=== PATIENT | male | born 1985 | race Caucasian/White ===

== ENCOUNTER 2016-05-23 13:06 | Inpatient (IN) | payer OTHER ==
--- NOTE | ~2016-05-23 | DS ---
Unit #: [id number] #: [id number] Patient: GÓMEZ RICKETTS [id number] [address] [place], [place] [address] [id number] I MR#: [id number] NAME: GÓMEZ RICKETTS. ROOM: 469 Age: 30 Sex: M Admission Date: 05/23/2016 : 1985 Discharge Date: 05/26/2016 Attending Physician: Lawanda Carlisle M.D. Primary Care Physician: Primary Care Physician No DISCHARGE SUMMARY DIAGNOSIS ON ADMISSION Right groin area abscess. DISCHARGE DIAGNOSES 1. Right groin area abscess and cellulitis, status post I and D. 2. Hypertension. 3. Type [address] Cintron in surgical consultation DIAGNOSTIC STUDIES LABORATORY: The patient's creatinine is 0.5, sodium 137, potassium is 3.8, WBC is 16.6, hemoglobin is 13.7, platelet count is 187. Wound culture and sensitivity revealed staphylococcus. The patient is sensitive to Bactrim and oxacillin. Blood culture did not reveal any growth so far. IMAGING: CT scan of the pelvis reveals soft tissue area in the right inguinal region, which extends down to the right scrotum. There was soft tissue swelling. Hemoglobin A1c was 10.2. HOSPITAL COURSE A 30-year-old male presented to [facility] with right groin swelling, details are as per admission history and physical. The patient was seen by Dr. Cintron and group in consultation and underwent incision and drainage. His culture was growing staphylococcus. Dr. Cintron has recommended the patient Bactrim DS one p.o. b.i.d. for fifteen days. He has asked to start him on Porter. Type 2 diabetes mellitus is uncontrolled. I have started the patient on glipizide. The patient is advised to follow up with his primary care physician. The patient has had hiccups and was treated by [facility]. Today, the patient is comfortable, is not in any acute distress. PHYSICAL EXAMINATION VITAL SIGNS: Reveal temperature of 97.1, pulse is 68 per minute, Unit #: [id number] #: [id number] Patient: GÓMEZ RICKETTS respiratory rate is 16 per minute, blood pressure is 133/65. HEENT EXAMINATION: Reveals no conjunctival congestion. Sclera is nonicteric. NECK: Supple. Trachea is central. RESPIRATORY EXAMINATION: Breath sounds equal bilaterally. There are no wheezes or crackles. HEART: Regular rate and rhythm, S1 and S2. ABDOMEN: Soft, nontender. Bowel sounds are present in all four quadrants. NEUROLOGIC: The patient is alert to person, place, and time. Strength is 5/5 bilaterally. SKIN EXAMINATION: The patient has right groin dressing. Skin is warm and dry. RECOMMENDATIONS ON DISCHARGE 1. The patient is stable. 2. Activity as tolerated. DISCHARGE MEDICATIONS 1. Glucophage 1000 mg p.o. b.i.d. 2. Glipizide 5 mg p.o. b.i.d. before meals 3. Benadryl 25 mg p.o. q.6h p.r.n. for itching over the counter 4. Porter 10/325 mg 1-2 pills p.o. q.4h p.r.n. for pain, script was written by Dr. Cintron for #38 pills FOLLOWUP The patient is advised to follow up with primary care physician in one week and with Dr. Cintron as recommended. The patient is advised to call primary care physician or go to the emergency room if his condition changes. The plan was discussed in detail with the patient who showed complete understanding. Dictated by... Azam Berg/yoana TD: 05/26/2016 15:49 JOB #: [id number] DISCHARGE SUMMARY X Harshal Savage MD X DISCHARGE SUMMARY
--- NOTE | ~2016-05-23 | CT105 ---
[facility] A Service [facility] RADIOLOGY TEXT RESULTS PATIENT: GÓMEZ RICKETTS LOCATION: [place] [address] : [birth year] UNIT #: [id number] AGE: [address]: Lawanda Carlisle MD SEX: M ORDER DR: [id number] [address] [address] [id number] E MR#: [id number] Acc #: [id number] NAME: GÓMEZ RICKETTS : 1985 SEX: M STUDY DATE/TIME: 05/23/2016 14:26 UNIT: SED ROOM: STUDY DESCRIPTION: CT Pelvis W Cont Attending Physician: Sheela Bazan Pa-C Ordering Physician: Sohail Shipley M.D. Primary Care Physician: No Primary Care Physician MEDICAL IMAGING REPORT This report is preliminary unless electronic signature is present. EXAM CT pelvis. DATE OF EXAM 05/23/2016 HISTORY Drainage from groin beginning last night. Right-sided pain and swelling. TECHNIQUE Transaxial imaging of the pelvis was performed with an IV bolus of contrast media. NOTE: This CT exam was performed with one or more of the following radiation dose reduction techniques: automatic exposure control, adjustment of mA and/or kV according to patient size, and iterative reconstruction. FINDINGS The study shows soft tissue edema in the right inguinal region. This extends down the right hemiscrotum. There is no fluid collection identified. Findings more suggestive of cellulitis. A few small nodes are identified in the region. None are pathologically enlarged. No fluid collections are identified in the subjacent musculature. Pelvis proper is unremarkable. Bony structures are normal. CONCLUSION Soft tissue swelling in the right inguinal region without evidence of a well-defined abscess. The findings are more suggestive of cellulitis than abscess. CT of the pelvis is otherwise negative. Dictated by... Tomi Del Toro M.D. [facility] A Service [facility] RADIOLOGY TEXT RESULTS PATIENT: GÓMEZ RICKETTS LOCATION: [facility] : [birth year] UNIT #: [id number] AGE: [address]: Lawanda Carlisle MD SEX: M ORDER DR: THIS IS AN ELECTRONICALLY VERIFIED REPORT Tomi Del Toro M.D. at 05/27/2016 5:08 PM JESSE/kenneth TD: 05/23/2016 17:15 JOB #: [id number] MEDICAL IMAGING REPORT
--- NOTE | ~2016-05-23 | HP ---
Unit #: [id number] #: [id number] Patient: GÓMEZ RICKETTS [id number] [place] [address] [facility]. [place], [place] [address] [id number] I MR#: [id number] NAME: GÓMEZ RICKETTS. ROOM: 339 Age: 30 Sex: M Admission Date: 05/23/2016 : 1985 Attending Physician: Candice Powell M.D. HISTORY AND PHYSICAL CHIEF COMPLAINT Possible abscessed groin. HISTORY OF PRESENT ILLNESS The patient is a 30-year-old male with a past medical history of diabetes, hypertension, and possible seizure, who presented to [facility] Emergency Department for evaluation of the above. The patient states that he was in his usual state of health until the day prior to admission when he noticed pain in his groin. He then noticed that it was swollen and red similar to when he had an abscess in the past. He states that he had an abscess about a month ago in his testicle. He completed a course of Keflex. The abscess today is in a different location. He denies any drainage. He states that he has had fever and chills. He reports a temperature of 101.3 at home. He denies any nausea, no vomiting, and no urinary symptoms. He does not routinely check his blood sugars. In the emergency department, his initial temperature was 98, pulse 97, and blood pressure 146/97. A CT of the pelvis showed soft tissue edema in the right inguinal region with no fluid collection identified suggestive of cellulitis. Also of note, the patient's white blood cell count was 10.9 and lactic acid 2.6. He was given clindamycin. Also of note, the patient's initial blood sugar on comprehensive metabolic panel was 444. He was given one liter of normal saline, as well as eight units of regular insulin. He was transferred to [facility] for admission. PAST MEDICAL HISTORY 1. Admission to [facility] February 22, 2010, for chest pain. 2. Hypertension. 3. Diabetes. 4. Seizure versus night terrors. The patient states that he has not had an episode for more than one year. He has never been on antiepileptic medication. He does not see a neurologist. PAST SURGICAL HISTORY 1. Tonsillectomy. 2. Knee surgery. 3. Pilonidal cyst removal. SOCIAL HISTORY The patient lives with his fiance. He smokes a half pack of cigarettes Unit #: [id number] #: [id number] Patient: GÓMEZ RICKETTS daily. He denies alcohol or illicit drug use. He works as a counter intelligence agent. FAMILY HISTORY Notable for his dad having diabetes. He at the age of 51. ALLERGIES PENICILLIN. HOME MEDICATIONS Glucophage. REVIEW OF SYSTEMS A 10-point review of systems is negative except as indicated in the History of Present Illness. The patient states that he has lost about 145 pounds in the past year. He states that he has not been trying to lose weight. He does not check his blood sugars at home as he does not have a glucometer. PHYSICAL EXAMINATION VITAL SIGNS: Temperature is 98, pulse 97, respirations 18, and blood pressure 146/97. GENERAL: Patient is a male who is awake, alert, and in no acute distress. HEENT: Head is atraumatic. Mucous membranes are moist. NECK: Supple. Trachea is midline. CARDIOVASCULAR: Regular rate and rhythm. LUNGS: Clear to auscultation bilaterally with no increased work of breathing. ABDOMEN: Soft and nontender with bowel sounds present in all four quadrants. EXTREMITIES: Nontender with no pedal edema. GENITOURINARY: The patient does have erythema, edema, warmth, and tenderness to palpation involving the right inguinal area consistent with cellulitis. It extends into the right scrotal area. NEUROLOGIC: Patient is awake and alert. He follows commands. PSYCHIATRIC: Mood and affect are normal. Patient is cooperative. SKIN: Skin demonstrates the previously described abnormalities. DIAGNOSTIC STUDIES LABORATORY: White blood cell count is 10.9. Comprehensive metabolic panel notable for sodium of 132 but corrects when glucose of 444 is accounted for. (1) is 98 and alkaline phosphatase 112. Lactic acid is 2.6. IMAGING: CT of the pelvis shows findings concerning for cellulitis with no drainable fluid collection. Urinalysis is notable for 300 glucose. ASSESSMENT The patient is a 30-year-old male with: 1. Right groin cellulitis. The patient had a wound culture from April 14, 2016, that grew 4+ group B streptococcus. There was also a wound culture from December 04, 2010, that again grew 3+ group B streptococcus. The patient received clindamycin in the emergency department. 2. Sepsis. 3. Uncontrolled diabetes. The patient received one liter of normal saline, as well as eight units of regular insulin. Unit #: [id number] #: [id number] Patient: GÓMEZ RICKETTS 4. Hypertension. 5. Possible seizure history versus night terrors. 6. Tobacco abuse. PLAN 1. Admit to med/surg. 2. Healthy heart, consistent carbohydrate diet. 3. Normal saline at 75 mL/hour. 4. N.p.o. after midnight for possible surgical intervention. 5. Blood cultures x2. 6. Vancomycin IV and Levaquin IV with first doses now. 7. Sepsis protocol with repeat lactic acid. 8. Consult [facility] regarding groin abscess/cellulitis. 9. Hemoglobin A1c. 10. Low-dose sliding scale insulin with Accu-Cheks. 11. P.r.n. Dilaudid. 12. P.r.n. Zofran. 13. P.r.n. Tylenol. 14. Repeat labs in the morning. 15. SCDs for DVT prophylaxis. 16. Additional workup and consultants based on above. 1. Dictated by Azam Carty/merissa TD: 05/23/2016 21:55 JOB #: [id number] HISTORY AND PHYSICAL X Rubi Fan MD X HISTORY AND PHYSICAL
--- NOTE | ~2016-05-23 | OR ---
Unit #: [id number] #: [id number] Patient: GÓMEZ RICKETTS [id number] [facility]. [address] [place], [place] [address] [id number] I MR#: [id number] NAME: GÓMEZ RICKETTS. ROOM: 469 Date of Procedure: 05/24/2016 Admission Date: 05/23/2016 Surgeon: Cornel Cintron Jr., M.D. : 1985 Attending Physician: Lawanda Carlisle M.D. OPERATIVE REPORT INDICATION FOR PROCEDURE The patient is a 30-year-old white male, who presented through the emergency room complaining of severe pain with evidence of cellulitis and probable abscess of the right groin area. He is brought to the operating room at this time for incision, drainage, and sharp excisional debridement of this using a #10-blade scalpel. He understands the procedure including the risk and consents. PREOPERATIVE DIAGNOSIS Abscess right inguinal femoral area. POSTOPERATIVE DIAGNOSIS Abscess right inguinal femoral area noting approximately 30 mL of pus and an abscess cavity in the suprapubic area to the right of the midline. ANESTHESIA General with LMA. PROCEDURE PERFORMED Incision and drainage and sharp excisional debridement using a #10-blade scalpel through the skin down through the subcutaneous tissue to the deeper subcutaneous tissue. DESCRIPTION OF PROCEDURE The patient was positioned in a supine position. After being anesthetized, he was prepped and draped in a routine fashion for incision and drainage and sharp excisional debridement of the abscess noted above. An elliptical incision was made around the most indurated area and this was carried down through the subcutaneous tissue down to the area of the abscess. There was approximately 30 to 40 mL of pus, which was [id number]. Cultures were taken from this for aerobic and anaerobic organisms and sent. The remainder of the tissue was removed with a #10-blade scalpel down to the deeper subcutaneous tissue. This was sent for pathology. Hemostasis was achieved with Bovie cautery. Some additional indurated tissue was removed that may have represented some necrotizing fatty tissue and at this point, there were several small bleeders that were controlled with [id number] 4-0 silk sutures. After hemostasis was noted and achieved with Bovie cautery, the wound was irrigated and then packed open with saline moist dry dressings. Sterile dressings were applied externally. Estimated blood loss less than 75 mL. The patient received less than 1000 mL crystalloid solution during the procedure. Sponges and instruments counts were correct x3. No drains Unit #: [id number] #: [id number] Patient: GÓMEZ RICKETTS used. No complications. The patient was taken to the recovery room with stable vital signs in satisfactory condition. Dictated by... Cornel Cintron Jr., MGoyo. CHALINO/arminda TD: 05/25/2016 04:55 JOB #: [id number] OPERATIVE REPORT X Cornel Cintron MD X PROCEDURE OPERATIVE NOTE
[~2016-05-23 13:06] MED LIST: ALBUTEROL 0.5ML INH; ASPIRIN81 M1 PO; BACTRIM DS TABL1 TA1 PO; BACTRIM DS TABL1 TA2 PO; BENZONATATE PO; BP MED; CIPRO PO; DILANTIN PO; DOXYCYCLINE HY100 M1 PO; FIORICET 50-321 EACH PO; FLONASE16 GM; GLUCOPHAGE500 M1 PO; GLUCOPHAGE500 MG PO; HCTZ; HYDROCODON-ACE1 EAC7 PO; LORTAB 5/500 TA1 TA1 PO; METFORMIN HCL500 M1; METFORMIN HCL500 M1 PO; METFORMIN PO; METOPROLOL TAR25 MG PO; METOPROLOL TART25 MG PO; NO MEDICATIONS; NORVASC PO; NYSTATIN1 GM TOP; PERCOCET5/325 PO; PHENERGAN PO; PHENERGAN25 M1 PO; PREDNISONE PO; TYLENOL #3 PO; UNKNOWN BP PILL; VIBRAMYCIN100 M1 PO; VICODIN 5/1 TAB 5/50 PO; VICODIN PO; ZITHROMAX PO; ZITHROMAX1 G/PKT PO; ZOFRAN PO
[2016-05-23] MEDS ORDERED: METFORMIN PO (13:08)
[2016-05-23 13:40] LABS: BASOPHIL# 0.1 X10e3 (0.0-0.3); BASOPHIL% 0.5 % (0.0-2.5); EOSINOPHIL# 0.3 X10e3 (0.0-0.7); EOSINOPHIL% 2.3 % (0.0-7.0); HEMATOCRIT 45.9 % (38.0-50.0); LYMPHOCYTE# 1.8 X10e3 (1.0-3.5); LYMPHOCYTE% 16.5 % (17.0-45.0); MEAN CELL VOLUME 86.8 FL (83-96); MEAN CORPUSCULAR HEMOGLOBIN 30.2 PG (28-34); MEAN CORPUSCULAR HGB CONC 34.8 g/dL (30-36); MEAN PLATELET VOLUME 8.2 FL (6.5-11.5); MONOCYTE# 0.7 X10e3 (0.0-1.0); NEUTROPHIL% 74.7 % (40.0-75.0); PLATELET COUNT 213 X10e3 (140-420); RED BLOOD COUNT 5.28 X10e6 (3.90-5.60); RED CELL DISTRIBUTION WIDTH 11.8 % (11.0-15.5); WHITE BLOOD COUNT 10.9 X10e3 (4.0-10.5)
[2016-05-23 13:46] LABS: DIFF IND NO
[2016-05-23 14:04] LABS: ALBUMIN SERUM 4.3 g/dL (3.5-5.0); ALKALINE PHOSPHATASE 112 U/L (32-92); ALT (SGPT) 18 U/L (10-40); AST (SGOT) 25 U/L (10-42); BILIRUBIN,TOTAL 0.7 mg/dL (0.2-2.0); BLOOD UREA NITROGEN 17 mg/dL (9-23); BUN/CREATININE RATIO 21.25; CARBON DIOXIDE 23 mmol/L (22-31); CHLORIDE 98 mmol/L (100-111); CREATININE SERUM 0.8 mg/dL (0.6-1.4); GLOM FILT RATE Estimated ABOVE60 mL/min (>60); GLUCOSE FASTING 444 mg/dL (70-110); PROTEIN TOTAL SERUM 7.7 g/dL (6.0-8.3); SODIUM 132 mmol/L (135-145)
[2016-05-23 19:26] LABS: URINE APPEARANCE CLEAR; URINE COLOR YELLOW; URINE GLUCOSE 300 MG/DL (NEG); URINE LEUKOCYTE ESTERASE NEG (NEG); URINE NITRATE NEG (NEG); URINE PH 5.5 (5-8); URINE PROTEIN NEG (NEG); URINE SOURCE CLEAN CATCH
[2016-05-23 19:27] LABS: MICRO INDICATED? NO; URINE BILIRUBIN NEG (NEG); URINE BLOOD NEG (NEG); URINE KETONE TRACE (NEG); URINE UROBILINOGEN 0.2 MG/DL (NEG)
[2016-05-23 22:56] LABS: ALBUMIN SERUM 4.6 g/dL (3.5-5.0); ALKALINE PHOSPHATASE 112 U/L (32-92); ALT (SGPT) 17 U/L (10-40); AST (SGOT) 15 U/L (10-42); BILIRUBIN,TOTAL 0.8 mg/dL (0.2-2.0); BLOOD UREA NITROGEN 16 mg/dL (9-23); BUN/CREATININE RATIO 17.77; CALCIUM SERUM 9.3 mg/dL (8.4-10.2); CARBON DIOXIDE 27 mmol/L (22-31); CHLORIDE 100 mmol/L (100-111); CREATININE SERUM 0.9 mg/dL (0.6-1.4); GLOM FILT RATE Estimated ABOVE60 mL/min (>60); GLUCOSE FASTING 266 mg/dL (70-110); POTASSIUM 3.7 mmol/L (3.5-5.1); PROTEIN TOTAL SERUM 8.1 g/dL (6.0-8.3); SODIUM 137 mmol/L (135-145)
[2016-05-24 06:45] LABS: BASOPHIL# 0.1 X10e3 (0-0.3); BASOPHIL% 0.4 % (0-2.5); EOSINOPHIL% 0.2 % (0.0-7.0); HEMATOCRIT 45.6 % (38.0-50.0); HEMOGLOBIN 15.3 gm/dL (13.0-16.0); LYMPHOCYTE# 0.9 X10e3 (1.0-3.5); LYMPHOCYTE% 7.5 % (17.0-45.0); MEAN CELL VOLUME 88.9 FL (83-96); MEAN CORPUSCULAR HEMOGLOBIN 29.9 PG (28-34); MEAN CORPUSCULAR HGB CONC 33.7 g/dL (30-36); MEAN PLATELET VOLUME 8.4 FL (6.5-11.5); MONOCYTE# 0.1 X10e3 (0-1.0); NEUTROPHIL# 11.2 X10e3 (1.5-7.1); NEUTROPHIL% 90.9 % (40-75); PLATELET COUNT 187 X10e3 (140-420); RED BLOOD COUNT 5.13 X10e (3.90-5.60); RED CELL DISTRIBUTION WIDTH 12.6 % (11.0-15.5); WHITE BLOOD COUNT 12.3 X10e3 (4.0-10.5)
[2016-05-24 06:47] LABS: DIFF IND NO
[2016-05-24 06:58] LABS: PROTHROMBIN TIME (PATIENT) 10.7 SECONDS (9.6-11.5)
[2016-05-24 07:26] LABS: ALBUMIN SERUM 3.9 g/dL (3.5-5.0); ALKALINE PHOSPHATASE 110 U/L (32-92); ALT (SGPT) 16 U/L (10-40); AST (SGOT) 13 U/L (10-42); BILIRUBIN,TOTAL 1.1 mg/dL (0.2-2.0); BLOOD UREA NITROGEN 17 mg/dL (9-23); BUN/CREATININE RATIO 24.28; CALCIUM SERUM 9.1 mg/dL (8.4-10.2); CARBON DIOXIDE 23 mmol/L (22-31); CHLORIDE 101 mmol/L (100-111); CREATININE SERUM 0.7 mg/dL (0.6-1.4); GLOM FILT RATE Estimated ABOVE60 mL/min (>60); GLUCOSE FASTING 383 mg/dL (70-110); POTASSIUM 4.7 mmol/L (3.5-5.1); PROTEIN TOTAL SERUM 7.3 g/dL (6.0-8.3); SODIUM 134 mmol/L (135-145)
[2016-05-25 03:22] LABS: HEMATOCRIT 39.7 % (38.0-50.0); HEMOGLOBIN 13.7 gm/dL (13.0-16.0); MEAN CELL VOLUME 87.7 FL (83-96); MEAN CORPUSCULAR HEMOGLOBIN 30.2 PG (28-34); MEAN CORPUSCULAR HGB CONC 34.5 g/dL (30-36); MEAN PLATELET VOLUME 8.2 FL (6.5-11.5); RED BLOOD COUNT 4.53 X10e (3.90-5.60); RED CELL DISTRIBUTION WIDTH 12.7 % (11.0-15.5); WHITE BLOOD COUNT 16.6 X10e3 (4.0-10.5)
[2016-05-25 03:47] LABS: ALBUMIN SERUM 3.6 g/dL (3.5-5.0); ALKALINE PHOSPHATASE 90 U/L (32-92); ALT (SGPT) 15 U/L (10-40); AST (SGOT) 14 U/L (10-42); BILIRUBIN,TOTAL 0.4 mg/dL (0.2-2.0); BLOOD UREA NITROGEN 24 mg/dL (9-23); BUN/CREATININE RATIO 34.28; CALCIUM SERUM 8.5 mg/dL (8.4-10.2); CARBON DIOXIDE 26 mmol/L (22-31); CHLORIDE 102 mmol/L (100-111); CREATININE SERUM 0.7 mg/dL (0.6-1.4); GLOM FILT RATE Estimated ABOVE60 mL/min (>60); GLUCOSE FASTING 320 mg/dL (70-110); POTASSIUM 3.9 mmol/L (3.5-5.1); PROTEIN TOTAL SERUM 6.8 g/dL (6.0-8.3); SODIUM 133 mmol/L (135-145)
[2016-05-26 03:05] LABS: BLOOD UREA NITROGEN 23 mg/dL (9-23); CARBON DIOXIDE 29 mmol/L (22-31); CHLORIDE 106 mmol/L (100-111); CREATININE SERUM 0.5 mg/dL (0.6-1.4); GLOM FILT RATE Estimated ABOVE60 mL/min (>60); GLUCOSE FASTING 143 mg/dL (70-110); POTASSIUM 3.8 mmol/L (3.5-5.1); SODIUM 137 mmol/L (135-145)
[2016-05-26] MEDS ORDERED: BENADRYL25 M3 PO (13:10)
[2016-05-26] MEDS ORDERED: HYDROCODON-ACE1 EAC5 PO (13:11)
[2016-05-26] MEDS ORDERED: TYLENOL325 M1 PO (13:12)
[2016-05-26] MEDS ORDERED: GLUCOTROL PO (13:13)
[2016-05-26] MEDS ORDERED: DAKIN'S473 M1 MC (13:13)
[2016-05-26] MEDS ORDERED: BACTRIM DS TABL1 TA2 PO (13:23)
[2016-05-26] MEDS ORDERED: LANTUS100 U/ML SUBQ (13:24)
[2016-05-31] MEDS ORDERED: PERCOCET PO (18:23)
== END 2016-05-26 14:05 | disposition home or self-care (01) | DRG 854 ==
LOC: SED 13:06 → C3A PCU 20:25 → C4C 05-24 16:17
PROVIDERS: Family Medicine; Internal Medicine; Physician Assistant; Surgery
PROC: 0JBC0ZZ Excision of Pelvic Region Subcutaneous Tissue and Fascia, Open Approach (ICD-10-PCS; principal; 2016-05-24 13:00)
DX: A41.9 Sepsis, unspecified organism (principal); L02.214 Cutaneous abscess of groin; E11.65 Type 2 diabetes mellitus with hyperglycemia; I10 Essential (primary) hypertension; L03.314 Cellulitis of groin; Z79.84 Long term (current) use of oral hypoglycemic drugs; F17.210 Nicotine dependence, cigarettes, uncomplicated; Z88.0 Allergy status to penicillin
CPT/HCPCS: 36415; 72193; 80048; 80053; 80202; 81003; 82947; 83036; 83605; 85025; 85027; 85610; 87040; 87070; 87075; 87077; 87186; 87205; 88304; 88312; 96365; 96375; 99285; J1170; J1200; J1815; J1956; J2250; J2270; J2405; J2930; J3010; J3230; J3370; Q9967

== ENCOUNTER 2016-05-31 18:51 | Emergency (ER) | payer OTHER ==
--- NOTE | ~2016-05-31 | CR252 ---
[facility] A Service of [facility] RADIOLOGY TEXT RESULTS PATIENT: GÓMEZ RICKETTS LOCATION: SED : [birth year] UNIT #: [id number] AGE: [address]: Tomi Thompson SEX: M ORDER DR: [id number] [place] [id number] E MR#: [id number] #: [id number] NAME: GÓMEZ RICKETTS. : 1985 SEX: M STUDY DATE/TIME: 05/31/2016 19:37 UNIT: SED ROOM: STUDY DESCRIPTION: CR Tibia and Fibula 2 Views Lt Attending Physician: Tomi Thompson P.A.-C. Ordering Physician: Tomi Thompson P.A.-C. MEDICAL IMAGING REPORT This report is preliminary unless electronic signature is present. EXAM Left tibia and fibula, 4 views. CLINICAL HISTORY Injury yesterday with pain. FINDINGS There is no fracture or acute bony abnormality. 2 small rounded chronic ossicles are seen in the medial mid calf of uncertain etiology and doubtful acute significance. Dictated by... Janes Irby M.D. THIS IS AN ELECTRONICALLY VERIFIED REPORT Janes Irby M.D. at 06/03/2016 4:32 PM TEV/pc TD: 06/01/2016 13:50 JOB #: [id number] MEDICAL IMAGING REPORT
[~2016-05-31 18:51] MED LIST changes: +BENADRYL25 M3 PO; +DAKIN'S473 M1 MC; +GLUCOTROL PO; +HYDROCODON-ACE1 EAC5 PO; +LANTUS100 U/ML SUBQ; +PERCOCET PO; +TYLENOL325 M1 PO
== END 2016-05-31 20:27 | disposition home or self-care (01) ==
LOC: SED 18:51
DX: S80.12XA Contusion of left lower leg, initial encounter (principal); E11.9 Type 2 diabetes mellitus without complications; I10 Essential (primary) hypertension; F17.210 Nicotine dependence, cigarettes, uncomplicated; Z79.899 Other long term (current) drug therapy; Z88.0 Allergy status to penicillin; Z88.1 Allergy status to other antibiotic agents; W22.8XXA Striking against or struck by other objects, initial encounter; Y92.009 Unspecified place in unspecified non-institutional (private) residence as the place of occurrence of the external cause
CPT/HCPCS: 73590; 99283

== ENCOUNTER 2016-09-12 18:04 | Emergency (ER) | payer OTHER | END 2016-09-12 20:55 | disposition home or self-care (01) | LOC: SED 18:04 → CED 18:27 → SED 20:55 | DX: M51.16 Intervertebral disc disorders with radiculopathy, lumbar region (principal); Z88.0 Allergy status to penicillin; Z88.1 Allergy status to other antibiotic agents; Z79.899 Other long term (current) drug therapy | CPT/HCPCS: 82947; 96372; 99283; J1170 ==

== ENCOUNTER 2016-11-13 09:34 | Emergency (ER) | payer OTHER ==
[~2016-11-13] VITALS: Ht 190.5 cm; Wt 120.2 kg
[2016-11-13] MEDS ORDERED: GLUCOTROL PO (15:28)
[2016-11-13] MEDS ORDERED: LORTAB 10-3251 EACH PO (15:30)
[2016-11-13] MEDS ORDERED: METFORMIN HCL1000 M1 PO (15:31)
[2016-11-13] MEDS ORDERED: BACTRIM DS TAB1 EACH PO (15:32)
[2016-11-13] MEDS ORDERED: OXYCODONE-ACET1 EAC1 PO (15:32)
== END 2016-11-13 11:10 | disposition home or self-care (01) ==
LOC: CED 09:34
DX: L05.91 Pilonidal cyst without abscess (principal); E11.9 Type 2 diabetes mellitus without complications; F17.210 Nicotine dependence, cigarettes, uncomplicated; Z88.0 Allergy status to penicillin; Z88.1 Allergy status to other antibiotic agents
CPT/HCPCS: 82947; 99283

== ENCOUNTER → 2016-11-14 | Day surgery (SDC) | payer OTHER ==
[~2016-11-14] MED LIST changes: +BACTRIM DS TAB1 EACH PO; +LORTAB 10-3251 EACH PO; +METFORMIN HCL1000 M1 PO; +OXYCODONE-ACET1 EAC1 PO
--- NOTE | ~2016-11-14 | EKG ---
PATIENT: GÓMEZ RICKETTS UNIT #: [id number] Ventricular Rate: 77 BPM Atrial Rate: 77 BPM P-R Interval: 158 ms QRS Duration: 94 ms Q-T Interval: 352 ms QTC Calculation(Bezet): 398 ms P Isabella: 35 degrees Calculated R Isabella: 43 degrees Calculated T Isabella: 51 degrees Diagnosis Line: Normal sinus rhythm Diagnosis Line: Normal ECG Diagnosis Line: When compared with ECG of 10-FEB-2014 09:46, Diagnosis Line: No significant change was found Diagnosis Line: Confirmed by IHSAN BUSTAMANTE MD ([id number]) on 11/14/2016 Diagnosis Line: 6:54:52 PM INTERPRETING MD: DIANNA CONWAY
--- NOTE | ~2016-11-14 | OR ---
Unit #: [id number] #: [id number] Patient: GÓMEZ RICKETTS [id number] [facility]. [address] [place], [place] [address] [id number] MR#: [id number] NAME: GÓMEZ RICKETTS. ROOM: Date of Procedure: 11/14/2016 Admission Date: 11/14/2016 Surgeon: Cornel Cintron Jr., M.D. : 1985 Attending Physician: Cornel Cintron Jr., M.D. Primary Care Physician: [facility] OPERATIVE REPORT INDICATIONS FOR PROCEDURE The patient is a 30-year-old white male, who presented to the office yesterday complaining of severe sacral pain felt to possibly be an infected pilonidal cyst. On examination, he was noted to have an indurated area long-term between the sacrum and anus and was started on antibiotics and also given pain medication. He is brought in this time for excision of this area with incision and drainage and sharp excisional debridement most likely. PREOPERATIVE DIAGNOSIS Possible infected pilonidal cyst. POSTOPERATIVE DIAGNOSIS Perianal abscess in the 12 o'clock position prone. This abscess was approximately 7 cm in diameter. ANESTHESIA General with endotracheal intubation. PROCEDURE PERFORMED Incision, drainage, and sharp excisional debridement of abscess of the perianal area. DESCRIPTION OF PROCEDURE The patient was positioned in the supine position. After being anesthetized and intubated, he was placed in prone position, prepped and draped in routine fashion for incision and drainage of his abscess. There was a small opening in the skin, where this abscess spontaneously drained last night. Cultures were taken from the wound for aerobic and anaerobic organisms. There was a moderate amount of pus. Hemostat was placed in the opening and the area opened up to see where it track to. It basically tracked towards the anus and not towards the sacrum making perianal abscess. The edges of the skin were excised on both sides of the open incision made initially with a #10 blade scalpel. This was all done with a #10 blade scalpel down to the deeper subcutaneous tissue and down to the sphincter muscle itself. The sphincter was not incised. All necrotic tissue at the base was then removed with the #10 blade scalpel. The wound irrigated with Betadine solution followed by saline and hemostasis achieved with Bovie cautery. The wound was then packed open with saline moist dry dressings. Sterile dressings were applied externally. Estimated blood loss less than 50 mL. The patient received less than 1000 mL crystalloid solution during the procedure. Sponges and instrument Unit #: [id number] #: [id number] Patient: GÓMEZ RICKETTS counts were correct x3. No drains used. No complications. The patient was taken to the recovery room with stable vital signs in satisfactory condition. Dictated by... Cornel Cintron Jr., M.D. JMB/arminda TD: 11/14/2016 14:26 JOB #: [id number] OPERATIVE REPORT Page 1 of 1 X Cornel Cintron MD X PROCEDURE OPERATIVE NOTE
[2016-11-14 11:23] LABS: BUN/CREATININE RATIO 18.75; CALCIUM SERUM 9.1 mg/dL (8.4-10.2); CREATININE SERUM 0.8 mg/dL (0.6-1.4); GLOM FILT RATE Estimated 119.9 mL/min (>60); POTASSIUM 4.2 mmol/L (3.5-5.1)
== END | disposition home or self-care (01) ==
LOC: CSUR 08:45
PROVIDERS: Surgery
DX: K61.0 Anal abscess (principal); E11.65 Type 2 diabetes mellitus with hyperglycemia; F17.210 Nicotine dependence, cigarettes, uncomplicated; Z88.0 Allergy status to penicillin; Z88.1 Allergy status to other antibiotic agents; Z79.891 Long term (current) use of opiate analgesic
CPT/HCPCS: 80048; 82947; 87070; 87075; 87205; 93005; J0330; J0692; J1170; J1885; J2250; J2405; J2710; J3010